=== PATIENT | male | born 1955 | race Caucasian/White ===

== ENCOUNTER 2019-06-22 09:53 | Emergency (ER) | payer MEDICAID ==
[~2019-06-22] VITALS: Ht 167.6 cm; Wt 77.0 kg
[2019-06-22 10:28] LABS: BASOPHILS % 0.3 % (0.0-2.0); HEMATOCRIT. 43.2 % (42.0-52.0); HEMOGLOBIN. 14.8 g/dL (14.0-18.0); LYMPHOCYTES % 8.8 % (20.0-50.0); MEAN CORPUSCULAR HEMOGLOBIN 32.4 pg (28.0-32.0); MEAN CORPUSCULAR VOLUME 94.6 fL (80.0-94.0); MEAN PLATELET VOLUME 8.7 fl (7.4-10.4); MONOCYTES % 7.3 % (2.0-8.0); NEUTROPHILS % 83.6 % (40.0-76.0); PLATELET 209 x1000/uL (130-400); RED BLOOD CELL COUNT 4.57 mill/uL (4.7-6.1); RED CELL DISTRIBUTION WIDTH 13.2 % (11.6-14.6)
[2019-06-22 10:35] LABS: CHLORIDE 102 mEq/L (98-107)
[2019-06-22 10:39] LABS: ETHANOL BLOOD < 10 mg/dL
[2019-06-22 12:11] LABS: CLARITY URINE CLEAR (CLEAR); COLOR URINE YELLOW (YELLOW); KETONES URINE NEGATIVE (NEGATIVE); LEUKOCYTE ESTERASE URINE NEGATIVE (NEGATIVE); NITRITE URINE NEGATIVE (NEGATIVE); OCCULT BLOOD URINE NEGATIVE (NEGATIVE); PH URINE 6.5 (4.5-8.0); PROTEIN URINE NEGATIVE (NEGATIVE); SPECIFIC GRAVITY URINE 1.021 (1.005-1.030); UROBILINOGEN URINE 0.2 E.U./dL (0.2-1.0)
[2019-06-22 12:44] LABS: *AMPHETAMINES SCREEN URINE NEGATIVE (NEGATIVE); *BARBITURATES SCREEN URINE NEGATIVE (NEGATIVE); *BENZODIAZEPINES SCREEN URINE NEGATIVE (NEGATIVE)
[2019-06-22 12:45] LABS: *COCAINE SCREEN URINE NEGATIVE (NEGATIVE); CANNABINOID URINE SCREEN NEGATIVE (NEGATIVE); METHADONE URINE SCREEN NEGATIVE (NEGATIVE); OPIATES URINE SCREEN PRESUMTIVE POSITIVE (NEGATIVE); PHENCYCLIDINE URINE SCREEN NEGATIVE (NEGATIVE)
[2019-06-22 21:50] VITALS: BP 148/50
== END 2019-06-22 21:50 | disposition home or self-care (01) ==
LOC: ER 10:04
DX: T40.602A Poisoning by unspecified narcotics, intentional self-harm, initial encounter (principal); R41.82 Altered mental status, unspecified; R03.0 Elevated blood-pressure reading, without diagnosis of hypertension; Y92.89 Other specified places as the place of occurrence of the external cause
CPT/HCPCS: 36415; 80053; 80305; 80307; 80320; 80329; 81003; 85025; 99284; G0480

== ENCOUNTER 2024-06-27 22:06 | Inpatient (IN) | payer MEDICARE, MEDICAID ==
[~2024-06-27] VITALS: Ht 167.6 cm; Wt 74.8 kg
[~2024-06-27 22:06] MED LIST: ASPI-1406 PO; COR3 PO; FURO40TA5 PO; LIP40 PO; LISI2.5T47 PO; PANT40TA51 PO; SPIR25TA PO; TICA90TA PO
[2024-06-27] MEDS ORDERED: HEPARIN 25,000 UNITS PREMIX 250 ML IV ONE (22:45)
[2024-06-27] MEDS ORDERED: HEPARIN 5000 UNITS/ML VIAL IV ONE (22:45)
[2024-06-27] MEDS: ONDANSETRON HCL 4MG/2ML INJ IV STA (23:16)
[2024-06-27] MEDS: MORPHINE SULFATE 4 MG/ML INJ (FOR IV/IM USE) IV STA (23:17)
[2024-06-27 23:38] LABS: CHLORIDE 104 mEq/L (98-107); POTASSIUM 3.9 mEq/L (3.5-5.1); SODIUM 140 mEq/L (136-145)
[2024-06-27 23:39] LABS: CALCIUM 9.4 mg/dL (8.7-10.4); CARBON DIOXIDE 25 mEq/L (21-32)
[2024-06-27 23:44] LABS: GLUCOSE 112 mg/dL (70-105); UREA NITROGEN BLOOD 16 mg/dL (9-23)
[2024-06-27 23:47] LABS: EOSINOPHILS % 4.8 % (0.0-5.0); HEMATOCRIT. 46.7 % (42.0-52.0); HEMOGLOBIN. 16.1 g/dL (14.0-18.0); LYMPHOCYTES % 24.1 % (20.0-50.0); MEAN CORPUSCULAR HEMOGLOBIN 32.6 pg (28.0-32.0); MEAN CORPUSCULAR HGB CONC 34.5 g/dL (31.0-37.0); MEAN CORPUSCULAR VOLUME 94.4 fL (80.0-94.0); MEAN PLATELET VOLUME 8.9 fl (7.4-10.4); MONOCYTES % 8.4 % (2.0-8.0); NEUTROPHILS % 61.7 % (40.0-76.0); PLATELET 255 x1000/uL (130-400); RED BLOOD CELL COUNT 4.95 mill/uL (4.7-6.1); RED CELL DISTRIBUTION WIDTH 12.8 % (11.6-14.6); WHITE BLOOD COUNT 9.3 x1000/uL (4.5-11.0)
[2024-06-27 23:55] LABS: PARTIAL THROMBOPLASTIN TIME 29.2 sec (23.4-31.0); PROTHROMBIN TIME 10.9 sec (9.6-11.0)
[2024-06-27] MEDS: HYDRALAZINE 20MG/ML VIAL IV ONE (23:57)
[2024-06-28 00:25] LABS: TROPONIN I HIGH SENSITIVITY 5648 ng/L (3.0-53)
[2024-06-28] MEDS ORDERED: IPRATROPIUM/ALBUTEROL 0.5-3(2.5)MG/3ML NEB HHN PRN (00:45)
[2024-06-28] MEDS ORDERED: MAGNESIUM/ALUMINUM HYDROXIDE/SIMETHICONE 30ML UDC PO PRN (00:45)
[2024-06-28] MEDS ORDERED: DOCUSATE SODIUM 100MG CAPSULE PO PRN (00:45)
[2024-06-28] MEDS ORDERED: ACETAMINOPHEN 325MG TABLET PO PRN ×3 (00:45→17:00)
[2024-06-28] MEDS ORDERED: CLONIDINE 0.1MG TABLET PO PRN (00:45)
[2024-06-28] MEDS: METOPROLOL TARTRATE 25MG TABLET PO SCH (00:45)
[2024-06-28] MEDS ORDERED: GUAIFENESIN 200MG/10ML SUGAR FREE UDC PO PRN (00:45)
[2024-06-28] MEDS ORDERED: ONDANSETRON HCL 4MG/2ML INJ IV PRN (00:45)
[2024-06-28] MEDS: HEPARIN 60 UNITS/KG BOLUS IV NR (01:21)
[2024-06-28] MEDS: HEPARIN 25,000 UNITS PREMIX 250 ML IV SCH (01:31)
[2024-06-28 02:20] VITALS: BP 147/73; PULSE 54; RESP 19; TEMP 36.5
[2024-06-28 02:27] LABS: TROPONIN I HIGH SENSITIVITY 6020 ng/L (3.0-53)
[2024-06-28] MEDS: ASPIRIN 325MG EC TABLET PO NR (02:54)
[2024-06-28] MEDS: TICAGRELOR 90 MG TABLET PO NR (02:55)
[2024-06-28] MEDS: ATORVASTATIN CALCIUM 40MG TABLET PO NR (02:55)
[2024-06-28] MEDS: NITROGLYCERIN 0.4MG TABLET SL SL PRN (03:02)
[2024-06-28 04:09] LABS: CLARITY URINE CLEAR (CLEAR); COLOR URINE YELLOW (YELLOW); GLUCOSE URINE NEGATIVE (NEGATIVE); KETONES URINE TRACE (NEGATIVE); LEUKOCYTE ESTERASE URINE NEGATIVE (NEGATIVE); NITRITE URINE NEGATIVE (NEGATIVE); OCCULT BLOOD URINE NEGATIVE (NEGATIVE); PH URINE 6.5 (4.5-8.0); PROTEIN URINE NEGATIVE (NEGATIVE); UROBILINOGEN URINE 0.2 E.U./dL (0.2-1.0)
[2024-06-28 05:16] LABS: *AMPHETAMINES SCREEN URINE NEGATIVE (NEGATIVE); *BARBITURATES SCREEN URINE NEGATIVE (NEGATIVE); *BENZODIAZEPINES SCREEN URINE NEGATIVE (NEGATIVE); *COCAINE SCREEN URINE NEGATIVE (NEGATIVE); CANNABINOID URINE SCREEN NEGATIVE (NEGATIVE); ECSTASY MDMA SCREEN URINE NEGATIVE (NEGATIVE); METHADONE URINE SCREEN NEGATIVE (NEGATIVE); OPIATES URINE SCREEN PRESUMPTIVE POSITIVE (NEGATIVE); PHENCYCLIDINE URINE SCREEN NEGATIVE (NEGATIVE)
[2024-06-28] MEDS ORDERED: HEPARIN BOLUS PRN aPTT <30 IV (06:00)
[2024-06-28 08:00] VITALS: BP 145/70; PULSE 56; RESP 18; TEMP 36.2; O2SAT 99
[2024-06-28] MEDS ORDERED: CEFAZOLIN 1000MG/50ML PREMIX IV ONE (08:00)
[2024-06-28 08:27] LABS: CREATINE KINASE MB FRACTION 56.5 ng/mL (0.5-3.6)
[2024-06-28 08:42] LABS: HEPATITIS B SURFACE ANTIGEN NEGATIVE (Negative)
[2024-06-28] MEDS: THIAMINE HCL 100MG TABLET PO SCH (09:04)
[2024-06-28] MEDS: LISINOPRIL 2.5MG TABLET PO SCH (09:05)
[2024-06-28] MEDS: AMLODIPINE 5MG TABLET PO SCH (09:54)
[2024-06-28 10:21] LABS: HEPATITIS C AB NON REACTIVE (Neg) (Negative)
[2024-06-28 12:00] VITALS: BP 124/64; PULSE 49; RESP 16; TEMP 36.3; O2SAT 99
[2024-06-28] MEDS: ISOSORBIDE DINITRATE 10MG TABLET PO SCH (13:00)
[2024-06-28] MEDS ORDERED: IODIXANOL 320MG/ML 100 ML BOTTLE IV ONE (14:04)
[2024-06-28] MEDS ORDERED: LIDOCAINE HCL 1% 20ML VIAL ONE (14:04)
[2024-06-28] MEDS ORDERED: HEPARIN 1000 UNITS/ML 10ML ONE (15:55)
[2024-06-28] MEDS ORDERED: MIDAZOLAM HCL 2 MG/2 ML VIAL ONE (15:55)
[2024-06-28] MEDS ORDERED: FENTANYL CITRATE/PF 50MCG/ML 2ML VIAL ONE (15:55)
[2024-06-28] MEDS ORDERED: VERAPAMIL HCL 2.5 MG/1 ML 2ML VIAL IV ONE (15:55)
[2024-06-28] MEDS ORDERED: DIPHENHYDRAMINE 50MG/ML VIAL ONE (15:56)
[2024-06-28 16:26] LABS: CREATINE KINASE MB FRACTION 52.4 ng/mL (0.5-3.6)
[2024-06-28 17:00] VITALS: BP 138/69; PULSE 49; RESP 13; TEMP 36.7; O2SAT 100
[2024-06-28 20:00] VITALS: BP 119/72; PULSE 88; RESP 18; TEMP 36.3; O2SAT 98
[2024-06-28 21:41] LABS: TROPONIN I HIGH SENSITIVITY 16480 ng/L (3.0-53)
[2024-06-29 00:38] VITALS: BP 105/57; PULSE 63; RESP 18; TEMP 36.4; O2SAT 94
[2024-06-29 04:02] VITALS: BP 98/43; PULSE 57; RESP 17; TEMP 36.5; O2SAT 92
[2024-06-29 08:00] VITALS: BP 131/58; PULSE 66; RESP 16; TEMP 36.7; O2SAT 97
[2024-06-29] MEDS ORDERED: ACETAMINOPHEN 325MG TABLET PO PRN (08:15)
[2024-06-29 08:56] LABS: BASOPHILS % 0.9 % (0.0-2.0); EOSINOPHILS % 6.4 % (0.0-5.0); HEMATOCRIT. 44.4 % (42.0-52.0); LYMPHOCYTES % 15.2 % (20.0-50.0); MEAN CORPUSCULAR HEMOGLOBIN 32.2 pg (28.0-32.0); MEAN CORPUSCULAR HGB CONC 33.7 g/dL (31.0-37.0); MEAN CORPUSCULAR VOLUME 95.5 fL (80.0-94.0); MEAN PLATELET VOLUME 8.7 fl (7.4-10.4); MONOCYTES % 10.8 % (2.0-8.0); NEUTROPHILS % 66.7 % (40.0-76.0); PLATELET 237 x1000/uL (130-400); RED BLOOD CELL COUNT 4.65 mill/uL (4.7-6.1); WHITE BLOOD COUNT 8.6 x1000/uL (4.5-11.0)
[2024-06-29 10:00] LABS: CHLORIDE 105 mEq/L (98-107); POTASSIUM 4.2 mEq/L (3.5-5.1); SODIUM 141 mEq/L (136-145)
[2024-06-29] MEDS: HEPARIN BOLUS PRN aPTT 30-44 IV (10:00)
[2024-06-29 10:01] LABS: CALCIUM 9.1 mg/dL (8.7-10.4); CARBON DIOXIDE 23 mEq/L (21-32)
[2024-06-29 10:06] LABS: CREATININE 1.3 mg/dL (0.6-1.3); GLUCOSE 93 mg/dL (70-105); TRIGLYCERIDE 76 mg/dL (0-150); UREA NITROGEN BLOOD 26 mg/dL (9-23)
[2024-06-29 10:07] LABS: ALANINE AMINOTRANSFERASE 21 IU/L (10-49); ASPARTATE AMINOTRANSFERASE 46 IU/L (<34); LDL CHOLESTEROL 123 mg/dL (5-100)
[2024-06-29 10:08] LABS: ALBUMIN 3.8 g/dL (3.2-4.8); BILIRUBIN DIRECT 0.3 mg/dL (<=3.0); BILIRUBIN TOTAL 0.9 mg/dL (0.1-1.0); CHOLESTEROL 157 mg/dL (<200); HDL CHOLESTEROL 32 mg/dL (>55); PROTEIN TOTAL 6.1 g/dL (6.0-8.3); T4 FREE 1.06 ng/dL (0.89-1.76); THYROID STIMULATING HORMONE 0.89 uIU/mL (0.55-4.78)
[2024-06-29 12:00] VITALS: BP 124/74; PULSE 68; RESP 20; TEMP 36.8; O2SAT 96
[2024-06-29 13:08] LABS: TROPONIN I HIGH SENSITIVITY 14294 ng/L (3.0-53)
[2024-06-29] MEDS: ASPIRIN 81MG TABLET PO SCH (13:48)
[2024-06-29 16:00] VITALS: BP 117/90; PULSE 70; RESP 15; TEMP 36.7; O2SAT 97
[2024-06-29 19:16] LABS: TROPONIN I HIGH SENSITIVITY 12321 ng/L (3.0-53)
[2024-06-29 20:00] VITALS: BP 125/83; PULSE 64; RESP 12; TEMP 36.9; O2SAT 96
[2024-06-29] MEDS: MORPHINE SULFATE 2 MG/ML INJ (NOT FOR IM USE) IV SCH (22:15)
[2024-06-30] VITALS (75 sets, daily range): BP systolic 102–182; BP diastolic 53–93; PULSE 47–73; RESP 10–22; TEMP 36.6–37.2; O2SAT 95–100
[2024-06-30 00:26] LABS: TROPONIN I HIGH SENSITIVITY 10748 ng/L (3.0-53)
[2024-06-30] MEDS: NITROGLYCERIN 50MG PREMIX 250 ML IV NR (01:36)
[2024-06-30] MEDS ORDERED: CEFAZOLIN 2,000 MG in DEXT 5% WATER 100 ML IV SCH (05:00)
[2024-06-30 07:21] LABS: BASOPHILS % 0.7 % (0.0-2.0); HEMATOCRIT. 41.7 % (42.0-52.0); LYMPHOCYTES % 26.1 % (20.0-50.0); MEAN CORPUSCULAR HEMOGLOBIN 32.3 pg (28.0-32.0); MEAN CORPUSCULAR HGB CONC 33.6 g/dL (31.0-37.0); MEAN PLATELET VOLUME 8.9 fl (7.4-10.4); MONOCYTES % 9.7 % (2.0-8.0); NEUTROPHILS % 53.5 % (40.0-76.0); PLATELET 223 x1000/uL (130-400); RED BLOOD CELL COUNT 4.35 mill/uL (4.7-6.1); WHITE BLOOD COUNT 7.9 x1000/uL (4.5-11.0)
[2024-06-30 07:27] LABS: CHLORIDE 106 mEq/L (98-107); POTASSIUM 3.8 mEq/L (3.5-5.1); SODIUM 140 mEq/L (136-145)
[2024-06-30 07:29] LABS: CALCIUM 8.8 mg/dL (8.7-10.4); CARBON DIOXIDE 25 mEq/L (21-32)
[2024-06-30 07:34] LABS: CREATININE 0.8 mg/dL (0.6-1.3); GLUCOSE 99 mg/dL (70-105); UREA NITROGEN BLOOD 28 mg/dL (9-23)
[2024-06-30 07:35] LABS: ALANINE AMINOTRANSFERASE 16 IU/L (10-49); ASPARTATE AMINOTRANSFERASE 30 IU/L (<34)
[2024-06-30 07:36] LABS: ALBUMIN 4.1 g/dL (3.2-4.8); PHOSPHORUS 3.1 mg/dL (2.5-4.9)
[2024-06-30 07:37] LABS: BILIRUBIN TOTAL 0.5 mg/dL (0.1-1.0); PROTEIN TOTAL 6.7 g/dL (6.0-8.3)
[2024-06-30] MEDS ORDERED: DIPHENHYDRAMINE 25MG CAPSULE PO PRN (21:00)
[2024-06-30] MEDS ORDERED: BISACODYL 10MG SUPP PR PRN (21:00)
[2024-07-01] VITALS (73 sets, daily range): BP systolic 85–159; BP diastolic 56–80; PULSE 43–98; RESP 7–32; TEMP 33.3–37.1; O2SAT 90–100
[2024-07-01] MEDS: ATORVASTATIN CALCIUM 40MG TABLET PO SCH (00:22)
[2024-07-01] MEDS: CHLORHEXIDINE GLUCONATE 4% EXTERNAL USE TOP SCH (00:23)
[2024-07-01] MEDS: ATROPINE SULFATE 1MG/10ML SYR IV PRN (04:19)
[2024-07-01] MEDS ORDERED: DOBUTAMINE 250 MG/250 ML PREMIX IV PRN (05:00)
[2024-07-01] MEDS ORDERED: PAPAVERINE HCL 180MG in SODIUM CHLORIDE 0.9% 24ML IV PRN (05:00)
[2024-07-01] MEDS ORDERED: CHLORHEXIDINE GLUCONATE 4% EXTERNAL USE TOP SCH (05:00)
[2024-07-01] MEDS ORDERED: NOREPINEPHRINE 8MG/250ML PMX 250 ML IV PRN (05:00)
[2024-07-01] MEDS ORDERED: NICARDIPINE 40MG/200ML PREMIX 200 ML IV PRN (05:00)
[2024-07-01] MEDS ORDERED: LR with VERAPAMIL, NTG, HEPARIN, SODIUM BICARBONATE (Soln) IV PRN (05:00)
[2024-07-01] MEDS ORDERED: CEFAZOLIN 2000MG PREMIX 50 ML IV SCH (05:00)
[2024-07-01] MEDS ORDERED: VANCOMYCIN 1G PREMIX 200 ML IV SCH (05:00)
[2024-07-01] MEDS ORDERED: ACETAMINOPHEN 1000MG/100ML 100 ML IV ONE (06:24)
[2024-07-01] MEDS ORDERED: SKIN ADHESIVE 0.7 GM EA TOP ONE (06:24)
[2024-07-01] MEDS ORDERED: SUGAMMADEX SODIUM 200MG/2ML VIAL IV ONE (06:24)
[2024-07-01] MEDS ORDERED: THROMBIN (BOVINE) 5000 UNITS/VIAL TOP ONE (06:24)
[2024-07-01] MEDS ORDERED: POLYMYXIN B SULFATE 500000 UNITS/VIAL ONE (06:24)
[2024-07-01] MEDS ORDERED: NITROGLYCERIN 50MG PREMIX 250 ML IV ONE (06:47)
[2024-07-01] MEDS ORDERED: HEPARIN 1000 UNITS/ML 10ML ONE ×3 (06:47→09:00)
[2024-07-01] MEDS ORDERED: PROPOFOL 10MG/ML 100ML 100 ML IV ONE (06:47)
[2024-07-01] MEDS ORDERED: SEVOFLURANE 250 ML LIQUID INH ONE (06:47)
[2024-07-01] MEDS ORDERED: DEXMEDETOMIDINE 400 MCG/100 ML 100 ML IV ONE (06:47)
[2024-07-01] MEDS: CEFAZOLIN 2,000 MG in DEXT 5% WATER 100 ML IV SCH (07:00)
[2024-07-01] MEDS: VANCOMYCIN 1GM PMX (XELLIA) 200 ML IV SCH (07:00)
[2024-07-01] MEDS ORDERED: ROCURONIUM BROMIDE 10MG/ML VIAL 5ML IV ONE ×2 (07:17→08:49)
[2024-07-01 07:18] LABS: BASOPHILS % 0.7 % (0.0-2.0); EOSINOPHILS % 8.4 % (0.0-5.0); HEMATOCRIT. 44.6 % (42.0-52.0); HEMOGLOBIN. 14.9 g/dL (14.0-18.0); LYMPHOCYTES % 27.8 % (20.0-50.0); MEAN CORPUSCULAR HGB CONC 33.3 g/dL (31.0-37.0); MEAN CORPUSCULAR VOLUME 96.1 fL (80.0-94.0); MEAN PLATELET VOLUME 8.8 fl (7.4-10.4); MONOCYTES % 10.3 % (2.0-8.0); NEUTROPHILS % 52.8 % (40.0-76.0); PLATELET 216 x1000/uL (130-400); RED BLOOD CELL COUNT 4.64 mill/uL (4.7-6.1); RED CELL DISTRIBUTION WIDTH 12.9 % (11.6-14.6); WHITE BLOOD COUNT 6.8 x1000/uL (4.5-11.0)
[2024-07-01] MEDS ORDERED: PROPOFOL 200MG/20ML VIAL IV ONE (07:18)
[2024-07-01] MEDS ORDERED: FENTANYL CITRATE/PF 50MCG/ML 2ML VIAL ONE ×2 (07:20→07:22)
[2024-07-01] MEDS ORDERED: MIDAZOLAM HCL 2 MG/2 ML VIAL ONE (07:22)
[2024-07-01] MEDS ORDERED: AMINOCAPROIC ACID 250 MG/ML 20ML VIAL ONE (07:23)
[2024-07-01 07:33] LABS: CHLORIDE 103 mEq/L (98-107); POTASSIUM 4.2 mEq/L (3.5-5.1); SODIUM 139 mEq/L (136-145)
[2024-07-01 07:34] LABS: CALCIUM 9.2 mg/dL (8.7-10.4); CARBON DIOXIDE 26 mEq/L (21-32); PARTIAL THROMBOPLASTIN TIME 29.1 sec (23.4-31.0); PROTHROMBIN TIME 11.1 sec (9.6-11.0)
[2024-07-01 07:39] LABS: CREATININE 0.8 mg/dL (0.6-1.3); GLUCOSE 91 mg/dL (70-105); UREA NITROGEN BLOOD 16 mg/dL (9-23)
[2024-07-01] MEDS ORDERED: LIDOCAINE HCL 1% 10 MG/ML 10ML VIAL ONE (07:54)
[2024-07-01] MEDS ORDERED: CALCIUM CHLORIDE 1GM/10ML SYR IV ONE ×2 (09:07→10:32)
[2024-07-01] MEDS ORDERED: FUROSEMIDE 100MG/10ML VIAL ONE (09:48)
[2024-07-01] MEDS ORDERED: LABETALOL 5MG/ML 20ML VIAL IV ONE ×2 (09:54→09:55)
[2024-07-01] MEDS ORDERED: ATROPINE SULFATE 1MG/10ML SYR ONE (10:34)
[2024-07-01] MEDS ORDERED: SODIUM BICARBONATE 8.4% 50MEQ/50ML SYR IV ONE ×2 (10:38→10:47)
[2024-07-01] MEDS ORDERED: CEFAZOLIN SODIUM 1000MG/VIAL ONE (11:01)
[2024-07-01] MEDS ORDERED: AMIODARONE HCL 50MG/ML 3ML VIAL IV ONE (11:12)
[2024-07-01] MEDS ORDERED: ACETAMINOPHEN 325MG TABLET PO PRN (11:30)
[2024-07-01] MEDS ORDERED: CALCIUM CHLORIDE 5,000 MG in DEXT 5% WATER 500 ML IV PRN (11:30)
[2024-07-01] MEDS ORDERED: EPINEPHRINE 5 MG in DEXT 5% WATER 245 ML IV PRN (11:30)
[2024-07-01] MEDS ORDERED: ALBUMIN HUMAN 25GM/100ML (25%) IV PRN (11:30)
[2024-07-01] MEDS ORDERED: MAGNESIUM 1 G PREMIX 100 ML IV PRN ×2 (11:30→11:45)
[2024-07-01] MEDS ORDERED: SODIUM CHLORIDE 0.9% 500 ML IV PRN (11:30)
[2024-07-01] MEDS ORDERED: ONDANSETRON HCL 4MG/2ML INJ ONE ×2 (11:37→11:57)
[2024-07-01] MEDS ORDERED: METOCLOPRAMIDE HCL 10MG/2ML VIAL ONE ×2 (11:37→12:08)
[2024-07-01] MEDS ORDERED: DEXTROSE 50% WATER 50ML SYRINGE IV PRN (11:45)
[2024-07-01] MEDS ORDERED: MAGNESIUM 2 G PREMIX 50 ML IV PRN (11:45)
[2024-07-01] MEDS ORDERED: KCL 10MEQ/50ML PREMIX 150 ML IV PRN (11:45)
[2024-07-01] MEDS ORDERED: MAGNESIUM SULFATE 3 GM in DEXT 5% WATER 100 ML IV PRN (11:45)
[2024-07-01 11:57] LABS: BASOPHILS % 0.6 % (0.0-2.0); EOSINOPHILS % 3.8 % (0.0-5.0); HEMOGLOBIN. 13.2 g/dL (14.0-18.0); LYMPHOCYTES % 26.1 % (20.0-50.0); MEAN CORPUSCULAR HEMOGLOBIN 32.1 pg (28.0-32.0); MEAN CORPUSCULAR HGB CONC 33.8 g/dL (31.0-37.0); MEAN CORPUSCULAR VOLUME 95.1 fL (80.0-94.0); MEAN PLATELET VOLUME 8.5 fl (7.4-10.4); MONOCYTES % 2.1 % (2.0-8.0); NEUTROPHILS % 67.4 % (40.0-76.0); PLATELET 211 x1000/uL (130-400); RED CELL DISTRIBUTION WIDTH 12.8 % (11.6-14.6)
[2024-07-01 12:06] LABS: CHLORIDE 101 mEq/L (98-107); POTASSIUM 2.9 mEq/L (3.5-5.1); SODIUM 142 mEq/L (136-145)
[2024-07-01 12:07] LABS: CALCIUM 11.3 mg/dL (8.7-10.4); CARBON DIOXIDE 27 mEq/L (21-32)
[2024-07-01 12:11] LABS: INR 1.1; PARTIAL THROMBOPLASTIN TIME 30.8 sec (23.4-31.0); PROTHROMBIN TIME 11.8 sec (9.6-11.0)
[2024-07-01 12:12] LABS: CREATININE 1.2 mg/dL (0.6-1.3); UREA NITROGEN BLOOD 17 mg/dL (9-23)
[2024-07-01 12:14] LABS: ALANINE AMINOTRANSFERASE 18 IU/L (10-49); ALBUMIN 3.5 g/dL (3.2-4.8); ASPARTATE AMINOTRANSFERASE 32 IU/L (<34); BILIRUBIN TOTAL 0.6 mg/dL (0.1-1.0); PHOSPHORUS 4.6 mg/dL (2.5-4.9)
[2024-07-01 12:19] LABS: GLUCOSE 271 mg/dL (70-105)
[2024-07-01] MEDS: ALBUMIN HUMAN 12.5G/250ML (5%) IV PRN (12:20)
[2024-07-01] MEDS: DEXT 5%/0.45% NACL 1000ML 1,000 ML IV SCH (12:24)
[2024-07-01] MEDS: HYDROMORPHONE HCL/PF 2MG/ML INJ IV NR ×2 (12:28→14:31)
[2024-07-01] MEDS: INSULIN REGULAR 100U/100ML PMX 100 ML IV NR (12:38)
[2024-07-01] MEDS: DOPAMINE 400MG/250ML PREMIX 250 ML IV PRN (12:39)
[2024-07-01] MEDS: EPINEPHRINE 5 MG in DEXT 5% WATER 250 ML IV PRN (12:40)
[2024-07-01] MEDS ORDERED: NALOXONE HCL 0.4MG/ML VIAL IV PRN (13:00)
[2024-07-01] MEDS: BLOOD SUGAR DIAGNOSTIC STRIP TEST SCH (13:03)
[2024-07-01 13:26] LABS: POTASSIUM 3.1 mEq/L (3.5-5.1)
[2024-07-01] MEDS: KETOROLAC 30MG/ML VIAL IV PRN (13:26)
[2024-07-01] MEDS ORDERED: AMIODARONE 360MG/200ML 200 ML IV PRN (13:30)
[2024-07-01 13:36] LABS: BG BASE EXCESS -2.5 mmol/L (-2.0-3.0); BG CARBOXYHEMOGLOBIN 0.3 % (0.5-1.5); BG DEOXYHEMOGLOBIN 8.3 % (0.0-5.0); BG FRACTION INSPIRED OXYGEN 40; BG HCO3 ACT 23.9 mmol/L (21.0-28.0); BG METHEMOGLOBIN 0.3 % (0.5-1.5); BG OXYGEN SATURATION 91.6 % (94.0-98.0); BG OXYHEMOGLOBIN 91.1 % (94.0-98.0); BG PH 7.324 (7.350-7.450); BG PO2 67.6 mmHg (83.0-108.0); BG SAMPLE SITE ALINE; BG TOTAL HEMOGLOBIN 14.8 g/dL (13.5-17.5); BG VENT MODE NASAL CANNULA
[2024-07-01] MEDS: KCL 10MEQ/50ML PREMIX 200 ML IV PRN (13:49)
[2024-07-01] MEDS: FENTANYL CITRATE/PF 50MCG/ML 2ML VIAL IV NR (14:16)
[2024-07-01] MEDS: ASPIRIN 81MG EC TABLET PO SCH (14:32)
[2024-07-01] MEDS: CLOPIDOGREL 75MG TABLET PO SCH (14:32)
[2024-07-01] MEDS: ONDANSETRON HCL 4MG/2ML INJ IV PRN (15:05)
[2024-07-01] MEDS: FUROSEMIDE 40MG/4ML VIAL IVP NR ×2 (15:26→23:13)
[2024-07-01] MEDS: AMIODARONE 360MG/200ML D5W PREMIX IV SCH (17:15)
[2024-07-01] MEDS: CEFAZOLIN 1000MG PREMIX 50 ML IV SCH (17:22)
[2024-07-01] MEDS: OXYCODONE HCL/ACETAMINOPHEN 5/325MG TABLET PO PRN ×2 (17:39→23:19)
[2024-07-01 18:00] LABS: HEMATOCRIT 39.6 % (42.0-52.0); HEMOGLOBIN 13.5 g/dL (14.0-18.0); MEAN CORPUSCULAR HEMOGLOBIN 32.1 pg (28.0-32.0); MEAN CORPUSCULAR HGB CONC 34.1 g/dL (31.0-37.0); MEAN CORPUSCULAR VOLUME 94.1 fL (80.0-94.0); PLATELET 247 x1000/uL (130-400); RED BLOOD CELL COUNT 4.21 mill/uL (4.7-6.1); RED CELL DISTRIBUTION WIDTH 12.8 % (11.6-14.6); WHITE BLOOD COUNT 17.9 x1000/uL (4.5-11.0)
[2024-07-01] MEDS: KCL 20MEQ/100ML PREMIX 100 ML IV NR (18:17)
[2024-07-01 19:08] LABS: CARBON DIOXIDE 30 mEq/L (21-32); CHLORIDE 103 mEq/L (98-107); POTASSIUM 3.8 mEq/L (3.5-5.1); SODIUM 143 mEq/L (136-145)
[2024-07-01 19:09] LABS: CALCIUM 9.6 mg/dL (8.7-10.4)
[2024-07-01 19:14] LABS: CREATININE 1.2 mg/dL (0.6-1.3); GLUCOSE 86 mg/dL (70-105); UREA NITROGEN BLOOD 18 mg/dL (9-23)
[2024-07-01 19:16] LABS: PHOSPHORUS 2.4 mg/dL (2.5-4.9)
[2024-07-01] MEDS: DEXTROSE 50% WATER 50ML SYRINGE IV PRN (20:09)
[2024-07-01] MEDS: KCL 10MEQ/50ML PREMIX 100 ML IV PRN (20:19)
[2024-07-01] MEDS: DOCUSATE SODIUM 100MG CAPSULE PO SCH (20:24)
[2024-07-01] MEDS: MAGNESIUM SULFATE 3 GM in DEXT 5% WATER 100 ML IV PRN (20:34)
[2024-07-01] MEDS: IPRATROPIUM/ALBUTEROL 0.5-3(2.5)MG/3ML NEB HHN SCH (20:37)
[2024-07-01] MEDS: BACITRACIN 14GM TUBE TOP SCH (21:00)
[2024-07-02] VITALS (73 sets, daily range): BP systolic 96–149; BP diastolic 48–107; PULSE 64–85; RESP 12–33; TEMP 36.6–37.1; O2SAT 90–100
[2024-07-02 00:34] LABS: HEMOGLOBIN 10.7 g/dL (14.0-18.0); MEAN CORPUSCULAR HEMOGLOBIN 33.1 pg (28.0-32.0); MEAN CORPUSCULAR HGB CONC 34.6 g/dL (31.0-37.0); MEAN CORPUSCULAR VOLUME 95.7 fL (80.0-94.0); PLATELET 169 x1000/uL (130-400); RED BLOOD CELL COUNT 3.24 mill/uL (4.7-6.1); RED CELL DISTRIBUTION WIDTH 12.8 % (11.6-14.6); WHITE BLOOD COUNT 10.6 x1000/uL (4.5-11.0)
[2024-07-02] MEDS: DOPAMINE 400MG/250ML PREMIX 250 ML IV PRN (00:34)
[2024-07-02 00:36] LABS: CARBON DIOXIDE 24 mEq/L (21-32); CHLORIDE 108 mEq/L (98-107); POTASSIUM 3.6 mEq/L (3.5-5.1); SODIUM 143 mEq/L (136-145)
[2024-07-02 00:37] LABS: CALCIUM 7.8 mg/dL (8.7-10.4)
[2024-07-02 00:41] LABS: CREATININE 1.1 mg/dL (0.6-1.3); GLUCOSE 101 mg/dL (70-105)
[2024-07-02 00:42] LABS: UREA NITROGEN BLOOD 18 mg/dL (9-23)
[2024-07-02 00:44] LABS: PHOSPHORUS 3.1 mg/dL (2.5-4.9)
[2024-07-02] MEDS: MAGNESIUM 2 G PREMIX 50 ML IV PRN (00:50)
[2024-07-02] MEDS: MIDODRINE HCL 5MG TABLET PO SCH (03:59)
[2024-07-02] MEDS: CALCIUM CHLORIDE 3,000 MG in DEXT 5% WATER 250 ML IV PRN (04:20)
[2024-07-02] MEDS: INSULIN REGULAR 100U/100ML PMX 100 ML IV SCH (04:31)
[2024-07-02 05:31] LABS: HEMATOCRIT 39.6 % (42.0-52.0); HEMOGLOBIN 13.6 g/dL (14.0-18.0); MEAN CORPUSCULAR HEMOGLOBIN 32.6 pg (28.0-32.0); MEAN CORPUSCULAR HGB CONC 34.3 g/dL (31.0-37.0); PLATELET 228 x1000/uL (130-400); RED BLOOD CELL COUNT 4.17 mill/uL (4.7-6.1); WHITE BLOOD COUNT 13.7 x1000/uL (4.5-11.0)
[2024-07-02] MEDS: ALBUMIN HUMAN 12.5G/250ML (5%) IV NR (06:48)
[2024-07-02] MEDS: TAMSULOSIN HCL 0.4MG SR CAPSULE PO SCH (09:06)
[2024-07-02] MEDS: AMIODARONE 200MG TABLET PO SCH (09:07)
[2024-07-02] MEDS: FAMOTIDINE 20MG/2ML VIAL IV SCH (09:07)
[2024-07-02 09:40] LABS: BASOPHILS % 0.2 % (0.0-2.0); HEMATOCRIT. 38.9 % (42.0-52.0); HEMOGLOBIN. 13.1 g/dL (14.0-18.0); LYMPHOCYTES % 7.4 % (20.0-50.0); MEAN CORPUSCULAR HEMOGLOBIN 32.4 pg (28.0-32.0); MEAN CORPUSCULAR HGB CONC 33.7 g/dL (31.0-37.0); MEAN CORPUSCULAR VOLUME 96.2 fL (80.0-94.0); MEAN PLATELET VOLUME 8.9 fl (7.4-10.4); MONOCYTES % 11.1 % (2.0-8.0); NEUTROPHILS % 81.3 % (40.0-76.0); PLATELET 208 x1000/uL (130-400); RED BLOOD CELL COUNT 4.04 mill/uL (4.7-6.1); RED CELL DISTRIBUTION WIDTH 13.1 % (11.6-14.6); WHITE BLOOD COUNT 14.1 x1000/uL (4.5-11.0)
[2024-07-02 09:43] LABS: CALCIUM 9.7 mg/dL (8.7-10.4); CARBON DIOXIDE 25 mEq/L (21-32); CHLORIDE 102 mEq/L (98-107); POTASSIUM 4.6 mEq/L (3.5-5.1); SODIUM 138 mEq/L (136-145)
[2024-07-02 09:48] LABS: CREATININE 1.4 mg/dL (0.6-1.3); GLUCOSE 112 mg/dL (70-105)
[2024-07-02 09:49] LABS: UREA NITROGEN BLOOD 22 mg/dL (9-23)
[2024-07-02 09:51] LABS: PHOSPHORUS 4.5 mg/dL (2.5-4.9)
[2024-07-02] MEDS: BLOOD SUGAR DIAGNOSTIC STRIP TEST SCH (12:50)
[2024-07-02] MEDS: INSULIN LISPRO 100 UNITS/ML SUBCUT SCH (13:34)
[2024-07-02 17:46] LABS: HEMATOCRIT 36.4 % (42.0-52.0); HEMOGLOBIN 12.3 g/dL (14.0-18.0); MEAN CORPUSCULAR HEMOGLOBIN 32.6 pg (28.0-32.0); MEAN CORPUSCULAR HGB CONC 33.8 g/dL (31.0-37.0); MEAN CORPUSCULAR VOLUME 96.4 fL (80.0-94.0); PLATELET 214 x1000/uL (130-400); RED BLOOD CELL COUNT 3.78 mill/uL (4.7-6.1); RED CELL DISTRIBUTION WIDTH 13.2 % (11.6-14.6); WHITE BLOOD COUNT 14.1 x1000/uL (4.5-11.0)
[2024-07-02 17:55] LABS: CHLORIDE 101 mEq/L (98-107); POTASSIUM 4.3 mEq/L (3.5-5.1); SODIUM 136 mEq/L (136-145)
[2024-07-02 17:56] LABS: CALCIUM 11.1 mg/dL (8.7-10.4); CARBON DIOXIDE 25 mEq/L (21-32)
[2024-07-02 18:01] LABS: CREATININE 1.3 mg/dL (0.6-1.3); GLUCOSE 165 mg/dL (70-105); UREA NITROGEN BLOOD 23 mg/dL (9-23)
[2024-07-02 18:04] LABS: PHOSPHORUS 4.7 mg/dL (2.5-4.9)
[2024-07-02] MEDS: CEFAZOLIN 1000MG PREMIX 50 ML IV NR (20:35)
[2024-07-02 22:11] LABS: HEMATOCRIT 36.7 % (42.0-52.0); HEMOGLOBIN 12.4 g/dL (14.0-18.0); MEAN CORPUSCULAR HEMOGLOBIN 32.6 pg (28.0-32.0); MEAN CORPUSCULAR HGB CONC 33.8 g/dL (31.0-37.0); MEAN CORPUSCULAR VOLUME 96.5 fL (80.0-94.0); PLATELET 210 x1000/uL (130-400); RED BLOOD CELL COUNT 3.81 mill/uL (4.7-6.1); RED CELL DISTRIBUTION WIDTH 13.3 % (11.6-14.6); WHITE BLOOD COUNT 13.7 x1000/uL (4.5-11.0)
[2024-07-02 22:19] LABS: CARBON DIOXIDE 26 mEq/L (21-32); CHLORIDE 100 mEq/L (98-107); POTASSIUM 4.4 mEq/L (3.5-5.1); SODIUM 136 mEq/L (136-145)
[2024-07-02 22:20] LABS: CALCIUM 10.2 mg/dL (8.7-10.4)
[2024-07-02 22:24] LABS: CREATININE 1.2 mg/dL (0.6-1.3); GLUCOSE 156 mg/dL (70-105)
[2024-07-02 22:25] LABS: UREA NITROGEN BLOOD 24 mg/dL (9-23)
[2024-07-03] VITALS (23 sets, daily range): BP systolic 103–140; BP diastolic 60–90; PULSE 64–82; RESP 10–28; TEMP 36.7–37.2; O2SAT 94–100
[2024-07-03 05:55] LABS: BASOPHILS % 0.2 % (0.0-2.0); EOSINOPHILS % 0.5 % (0.0-5.0); HEMATOCRIT. 35.7 % (42.0-52.0); HEMOGLOBIN. 11.8 g/dL (14.0-18.0); LYMPHOCYTES % 11.4 % (20.0-50.0); MEAN CORPUSCULAR HEMOGLOBIN 32.5 pg (28.0-32.0); MEAN CORPUSCULAR HGB CONC 33.1 g/dL (31.0-37.0); MEAN CORPUSCULAR VOLUME 98.1 fL (80.0-94.0); MEAN PLATELET VOLUME 8.8 fl (7.4-10.4); MONOCYTES % 13.3 % (2.0-8.0); NEUTROPHILS % 74.6 % (40.0-76.0); PLATELET 190 x1000/uL (130-400); RED BLOOD CELL COUNT 3.64 mill/uL (4.7-6.1); RED CELL DISTRIBUTION WIDTH 13.1 % (11.6-14.6); WHITE BLOOD COUNT 14.4 x1000/uL (4.5-11.0)
[2024-07-03 06:13] LABS: CARBON DIOXIDE 26 mEq/L (21-32); CHLORIDE 97 mEq/L (98-107); POTASSIUM 4.3 mEq/L (3.5-5.1); SODIUM 134 mEq/L (136-145)
[2024-07-03 06:15] LABS: CALCIUM 9.4 mg/dL (8.7-10.4)
[2024-07-03 06:19] LABS: GLUCOSE 138 mg/dL (70-105)
[2024-07-03 06:20] LABS: UREA NITROGEN BLOOD 23 mg/dL (9-23)
[2024-07-03 06:22] LABS: PHOSPHORUS 3.6 mg/dL (2.5-4.9)
[2024-07-03] MEDS: FUROSEMIDE 40MG/4ML VIAL IVP NR (11:14)
[2024-07-03] MEDS: MAGNESIUM 1 G PREMIX 100 ML IV NR (11:16)
[2024-07-04] VITALS (8 sets, daily range): BP systolic 102–142; BP diastolic 65–89; PULSE 72–85; RESP 17–20; TEMP 36.7–36.9; O2SAT 94–97
[2024-07-04 06:13] LABS: BASOPHILS % 0.3 % (0.0-2.0); EOSINOPHILS % 0.5 % (0.0-5.0); HEMATOCRIT. 35.7 % (42.0-52.0); HEMOGLOBIN. 11.9 g/dL (14.0-18.0); MEAN CORPUSCULAR HEMOGLOBIN 32.2 pg (28.0-32.0); MEAN CORPUSCULAR HGB CONC 33.4 g/dL (31.0-37.0); MEAN CORPUSCULAR VOLUME 96.5 fL (80.0-94.0); MEAN PLATELET VOLUME 8.9 fl (7.4-10.4); MONOCYTES % 11.5 % (2.0-8.0); NEUTROPHILS % 74.7 % (40.0-76.0); PLATELET 187 x1000/uL (130-400); RED CELL DISTRIBUTION WIDTH 12.9 % (11.6-14.6); WHITE BLOOD COUNT 11.4 x1000/uL (4.5-11.0)
[2024-07-04 06:29] LABS: CHLORIDE 94 mEq/L (98-107); POTASSIUM 3.9 mEq/L (3.5-5.1); SODIUM 134 mEq/L (136-145)
[2024-07-04 06:30] LABS: CALCIUM 9.4 mg/dL (8.7-10.4); CARBON DIOXIDE 27 mEq/L (21-32)
[2024-07-04 06:35] LABS: GLUCOSE 111 mg/dL (70-105)
[2024-07-04 06:36] LABS: UREA NITROGEN BLOOD 29 mg/dL (9-23)
[2024-07-04 06:38] LABS: PHOSPHORUS 3.2 mg/dL (2.5-4.9)
[2024-07-04] MEDS: KCL 20MEQ/100ML PREMIX 100 ML IV NR (08:06)
[2024-07-04] MEDS: FUROSEMIDE 40MG/4ML VIAL IVP NR (08:07)
[2024-07-04] MEDS: KCL 10MEQ/50ML PREMIX 50 ML IV NR (10:00)
[2024-07-04] MEDS: MAGNESIUM SULFATE 3 GM in DEXT 5% WATER 94 ML IV NR (10:33)
[2024-07-04] MEDS ORDERED: LIP40 PO (12:24)
[2024-07-04] MEDS ORDERED: CLOP-31 PO (12:24)
[2024-07-04] MEDS ORDERED: AMI2 PO (12:24)
[2024-07-04] MEDS ORDERED: MIDO5TAB4 PO (12:24)
[2024-07-04] MEDS ORDERED: ASPI-1406 PO (12:24)
[2024-07-04] MEDS ORDERED: TAMS-54 PO (12:24)
== END 2024-07-04 18:13 | disposition home health service (06) | DRG 233 ==
LOC: ER 22:06 → 7WST 23:58 → ENRESERV 06-28 00:53 → 3WST 06-28 12:05 → CVICU 06-30 00:55 → 8WST 07-01 17:44 → CVICU 07-01 18:39 → 3WST 07-03 07:04
PROVIDERS: ADMIT Hospitalist; ATTEND Hospitalist
PROC: 4A023N7 Measurement of Cardiac Sampling and Pressure, Left Heart, Percutaneous Approach (ICD-10-PCS; 2024-06-28)
PROC: B211YZZ Fluoroscopy of Multiple Coronary Arteries using Other Contrast (ICD-10-PCS; 2024-06-28)
PROC: 02100Z9 Bypass Coronary Artery, One Artery from Left Internal Mammary, Open Approach (ICD-10-PCS; principal; 2024-07-01)
PROC: 021209W Bypass Coronary Artery, Three Arteries from Aorta with Autologous Venous Tissue, Open Approach (ICD-10-PCS; 2024-07-01)
PROC: 06BQ4ZZ Excision of Left Saphenous Vein, Percutaneous Endoscopic Approach (ICD-10-PCS; 2024-07-01)
DX: T82.855A Stenosis of coronary artery stent, initial encounter (principal); I21.4 Non-ST elevation (NSTEMI) myocardial infarction; I50.23 Acute on chronic systolic (congestive) heart failure; I16.1 Hypertensive emergency; E78.5 Hyperlipidemia, unspecified; I11.0 Hypertensive heart disease with heart failure; I25.5 Ischemic cardiomyopathy; I25.2 Old myocardial infarction; Z79.899 Other long term (current) drug therapy; Z91.148 Patient's other noncompliance with medication regimen for other reason; Z98.61 Coronary angioplasty status
CPT/HCPCS: 36415; 36600; 71045; 80048; 80053; 80061; 80076; 80305; 81003; 82375; 82550; 82553; 82805; 82962; 83036; 83735; 83880; 84100; 84132; 84439; 84443; 84484; 85025; 85027; 85347; 85384; 86705; 86850; 86900; 86920; 87340; 93005; 93306; 93458; 93880; 93970; 94060; 94070; 94640; 94664; 97110; 97116; 97162; 97166; 97535; 98960; 99291; C1725; C1729; C1751; C1758; C1769; C1887; C1893; J0282; J0360; J0461; J0690; J1171; J1200; J1265; J1644; J1815; J1885; J1940; J2003; J2250; J2270; J2405; J2704; J2765; J3010; J3370; J3475; J3480; J3490; J7060; L3908; P9041; Q9967; C1713; J0131; J8499